=== PATIENT | male | born 1950 | race Caucasian/White ===

== ENCOUNTER 2023-11-27 13:00 | Emergency (ER) | payer OTHER, MEDICARE ==
[~2023-11-27] VITALS: Ht 172.7 cm; Wt 74.8 kg
[2023-11-27 13:07] VITALS: BP_SYST 91; PULSE 71; RESP 18; TEMP 98.3; O2SAT 96
[2023-11-27 13:27] LABS: BASOPHILS % (AUTO) 0.7 % (0.0-2.0); EOSINOPHILS # (AUTO) 0.6 K/uL (0.0-0.4); EOSINOPHILS % (AUTO) 10.6 % (0.0-4.0); HEMOGLOBIN 11.4 g/dL (14.0-18.0); LYMPHOCYTES # (AUTO) 0.8 K/uL (1.0-5.5); LYMPHOCYTES % (AUTO) 14.4 % (20.5-51.5); MEAN CORPUSCULAR HEMOGLOBIN 31 pg (27-31); MEAN CORPUSCULAR HGB CONC 33 % (32-36); MEAN CORPUSCULAR VOLUME 96 fL (79.0-98.0); MONOCYTES # (AUTO) 0.5 K/uL (0.0-1.0); MONOCYTES % (AUTO) 8.3 % (1.7-9.3); NEUTROPHILS # (AUTO) 3.8 K/uL (1.8-7.7); PLATELET COUNT (AUTO) 145 K/uL (130-430); RED BLOOD CELL COUNT(AUTO) 3.65 MIL/uL (4.2-6.2); RED CELL DISTRIBUTION WIDTH 13.7 % (9.0-15.0); WHITE BLOOD COUNT (AUTO) 5.7 K/uL (4.8-10.8)
[2023-11-27 13:47] LABS: ANION GAP 11 (5-15); CALCIUM 9.5 mg/dL (8.4-11.0); CARBON DIOXIDE 24 mmol/L (23-29); CHLORIDE 102 mmol/L (98-107); CREATININE 1.48 mg/dL (0.55-1.30); GLUCOSE 84 mg/dL (74-106); POTASSIUM 4.8 mmol/L (3.5-5.1); SODIUM SERUM 137 mmol/L (136-145); UREA NITROGEN, BLOOD 29 mg/dL (8-21)
[2023-11-27 13:48] LABS: INFLUENZA TYPE A Negative (NEGATIVE); INFLUENZA TYPE B NEGATIVE (NEGATIVE)
[2023-11-27] MEDS: cefTRIAXone 1 GM IVPB PREMIX 50 ML IV ONE (14:04)
[2023-11-27] MEDS: NACL 0.9% 1,000 ML IV ONE (14:31)
[2023-11-27] MEDS ORDERED: THIAMINE HCL 200 MG/2 ML VIAL ONE (14:55)
[2023-11-27] MEDS: THIAMINE HCL 100 MG in NS 50 ML IV ONE (15:03)
[2023-11-27] MEDS: ONDANSETRON HCL 4 MG/2 ML VIAL IVP ONE (15:03)
[2023-11-27 15:46] LABS: BILIRUBIN,URINE NEGATIVE (NEGATIVE); BLOOD, URINE NEGATIVE (NEGATIVE); CLARITY/URINE CLEAR (CLEAR); COLOR,URINE YELLOW (YELLOW); GLUCOSE,URINE NEGATIVE (NEGATIVE); KETONES,URINE NEGATIVE (NEGATIVE); LEUKOCYTE ESTERASE ,URINE NEGATIVE (NEGATIVE); NITRITE, URINE NEGATIVE (NEGATIVE); PROTEIN URINE NEGATIVE (NEGATIVE); UROBILINOGEN,URINE 0.2 (0.2-1.0)
[2023-11-27 16:38] VITALS: BP_SYST 111; PULSE 65; RESP 15; TEMP 98.1; O2SAT 97
== END 2023-11-27 16:38 | disposition home or self-care (01) ==
LOC: SED 13:00
DX: E86.0 Dehydration (principal); G31.84 Mild cognitive impairment of uncertain or unknown etiology; I10 Essential (primary) hypertension; Z79.899 Other long term (current) drug therapy; Z20.822 Contact with and (suspected) exposure to COVID-19
CPT/HCPCS: 99285; 96365; 70450; 71045; 96367; 96375; 87426; 80048; 81001; 82140; 83880; 85025; 87040; 87086; 84484; 36415; 93005; 83605; 87804 ×2; 81003; J0696; J2405; J3411